=== PATIENT | female | born 1990 | race Hispanic/Latino ===

== ENCOUNTER 2019-05-03 18:35 | Emergency (ER) | payer MEDICAID, OTHER ==
[~2019-05-03 18:35] MED LIST: PREN1TAB26 PO
[2019-05-03] MEDS ORDERED: IBUPROFEN 600 MG TABLET ONE (18:49)
[2019-05-03] MEDS ORDERED: CYCLOBENZAPRINE HCL 10 MG TABLET ONE (18:50)
== END 2019-05-03 19:56 | disposition home or self-care (01) ==
LOC: EDH 18:35
DX: S16.1XXA Strain of muscle, fascia and tendon at neck level, initial encounter (principal); S20.219A Contusion of unspecified front wall of thorax, initial encounter; V49.49XA Driver injured in collision with other motor vehicles in traffic accident, initial encounter; Y93.89 Activity, other specified; Y92.89 Other specified places as the place of occurrence of the external cause; Y99.8 Other external cause status
CPT/HCPCS: 71045; 93005